=== PATIENT | female | born 1990 | race Caucasian/White ===

== ENCOUNTER → 2021-07-18 20:18 | Observation (INO) ==
[2021-07-18 19:40] LABS: Basophils % 0.2 %; Eosinophils # 0.2 K/mcL (0.0-0.6); Eosinophils % 1.8 %; Hematocrit 33.5 % (35.3-44.9); Hemoglobin 11.2 g/dL (11.5-15.4); Immature Granulocytes % 0.8 % (0-4); Lymphocytes # 2.1 K/mcL (0.6-4.6); Lymphocytes % 22.6 %; Mean Corpuscular HGB Conc 33.4 g/dL (31.6-35.5); Mean Corpuscular Hemoglobin 28.4 pg (28.0-33.3); Mean Platelet Volume 10.8 fL (9.4-12.4); Monocytes # 0.8 K/mcL (0.0-1.3); Neutrophils # 6.1 K/mcL (1.6-8.9); Platelet Count 225 K/mcL (140-400); Red Blood Count 3.94 M/mcL (3.82-4.97); Red Cell Distribution Width 13.4 % (11.5-14.5); Segmented Neutrophils % 65.6 %; White Blood Count 9.2 K/mcL (4.3-11.1)
[2021-07-18 19:50] LABS: Protein/Creatinine Ratio,Urine 0.12 mg/mg (0.00-0.20)
[2021-07-18 19:54] LABS: Alanine Aminotransferase 13 Units/L (7-52); Aspartate Amino Transferase 21 Units/L (13-39); BUN/Creatinine Ratio 13 (6-26); Blood Urea Nitrogen 13 mg/dL (6-20); Lactate Dehydrogenase 182 Units/L (140-271); Uric Acid 4.6 mg/dL (2.3-7.6); eGFR For African Americans > 60 (> 60); eGFR For Non-African Americans > 60 (> 60)
== END | disposition home or self-care (01) ==
LOC: 1NENULAB
PROVIDERS: ADMIT Student in an Organized Health Care Education/Training Program; ATTEND Student in an Organized Health Care Education/Training Program

== ENCOUNTER 2021-07-26 01:43 | Inpatient (IN) ==
[2021-07-26 00:43] LABS: Basophils % 0.4 %; Eosinophils # 0.2 K/mcL (0.0-0.6); Eosinophils % 1.9 %; Hemoglobin 11.3 g/dL (11.5-15.4); Immature Granulocytes % 0.8 % (0-4); Lymphocytes # 2.2 K/mcL (0.6-4.6); Lymphocytes % 23.4 %; Mean Corpuscular HGB Conc 33.2 g/dL (31.6-35.5); Mean Corpuscular Hemoglobin 28.4 pg (28.0-33.3); Mean Corpuscular Volume 85.4 fL (83.0-100.0); Mean Platelet Volume 10.1 fL (9.4-12.4); Monocytes # 0.8 K/mcL (0.0-1.3); Monocytes % 8.7 %; Platelet Count 221 K/mcL (140-400); Red Blood Count 3.98 M/mcL (3.82-4.97); Red Cell Distribution Width 13.5 % (11.5-14.5); Segmented Neutrophils % 64.8 %; White Blood Count 9.3 K/mcL (4.3-11.1)
[2021-07-26 00:49] LABS: Creatinine,Urine 42 mg/dL; Protein/Creatinine Ratio,Urine 0.21 mg/mg (0.00-0.20)
[2021-07-26 00:55] LABS: Alanine Aminotransferase 16 Units/L (7-52); Aspartate Amino Transferase 24 Units/L (13-39); BUN/Creatinine Ratio 16 (6-26); Blood Urea Nitrogen 12 mg/dL (6-20); Lactate Dehydrogenase 148 Units/L (140-271); Uric Acid 4.3 mg/dL (2.3-7.6); eGFR For African Americans > 60 (> 60); eGFR For Non-African Americans > 60 (> 60)
[2021-07-26] MEDS ORDERED: Famotidine 20 MG/2 ML VIAL IVP PRN (02:07)
[2021-07-26] MEDS ORDERED: Ondansetron 4 MG/2 ML VIAL IVP PRN (02:07)
[2021-07-26] MEDS ORDERED: Azithromycin 500 MG in 0.9 % Sodium Chloride 250 ML IVPB PRN (02:07)
[2021-07-26] MEDS ORDERED: miSOPROStoL 25 MCG TABLET PO PRN (02:07)
[2021-07-26] MEDS ORDERED: Lidocaine 1% 20 ML MDV INFILT PRN (02:07)
[2021-07-26] MEDS ORDERED: *HR* Nalbuphine 10 MG/ML AMPUL IV PRN (02:07)
[2021-07-26] MEDS ORDERED: Naloxone 0.4 MG/ML INJ IVP PRN (02:07)
[2021-07-26] MEDS ORDERED: Ringers Solution, Lactated 1,000 ML IVC SCH (02:15)
[2021-07-26 02:34] LABS: Amphetamine Screen,Urine Negative ng/mL (Cutoff=1000); Barbiturate Screen,Urine Negative ng/mL (Cutoff=200); Benzodiazepines Screen,Urine Negative ng/mL (Cutoff=200); Cannabinoid Screen,Urine Negative ng/mL (Cutoff = 50); Cocaine Screen,Urine Negative ng/mL (Cutoff= 300); Opiate Screen,Urine Negative ng/mL (Cutoff=300); Phencyclidine Screen,Urine Negative ng/mL (Cutoff=25)
[2021-07-26 03:05] LABS: Influenza A PCR Negative (Negative); Influenza B PCR Negative (Negative); Resp. Syncytial Virus PCR Negative (Negative)
[2021-07-26 03:11] LABS: SARS-CoV-2 by PCR (In House) Negative (Negative)
[2021-07-26] MEDS ORDERED: EPHEDrine 50 MG/ML VIAL IVP PRN (05:49)
[2021-07-26] MEDS ORDERED: Epidural Premix (fent/bupiv) 110 ML EP SCH (06:00)
[2021-07-26] MEDS ORDERED: Oxytocin 20 units/ LR 1000 mL 20 UNIT/1,000 ML BAG IVC SCH (07:30)
[2021-07-26] MEDS ORDERED: *HR* FentaNYL (PF) 100 MCG/2 ML VIAL ONE ×3 (21:30→23:03)
[2021-07-26] MEDS ORDERED: Bupivacaine-MPF 0.25% 10 ML VIAL ONE ×2 (22:24→22:25)
[2021-07-27] MEDS ORDERED: Lanolin 7 G OINT...G. TP PRN (05:17)
[2021-07-27] MEDS ORDERED: Measles/Mumps/Rubella Vacc 0.5 ML VIAL SQ PRN (05:17)
[2021-07-27] MEDS ORDERED: Benzocaine/Menthol 56 GM AEROSOL SPRAY TP PRN (05:17)
[2021-07-27] MEDS ORDERED: Rho Immune Globulin 1,500 UNIT SYRINGE IM PRN (05:17)
[2021-07-27] MEDS ORDERED: Oxytocin 20 units/ LR 1000 mL 20 UNIT/1,000 ML BAG IVC SCH (05:17)
[2021-07-27] MEDS ORDERED: Ondansetron ODT 4 MG TAB.RAPDIS SL PRN (06:00)
[2021-07-27] MEDS: Acetaminophen 325 MG TABLET PO SCH ×2 (09:21→20:47)
[2021-07-27] MEDS: Ibuprofen 600 MG TABLET PO SCH ×2 (09:23→20:48)
[2021-07-27] MEDS: Prenatal Vit/FA 1 EACH TABLET PO SCH (09:23)
[2021-07-28] MEDS: Acetaminophen 325 MG TABLET PO SCH ×2 (04:35→10:09)
[2021-07-28] MEDS: Ibuprofen 600 MG TABLET PO SCH ×2 (04:35→10:09)
[2021-07-28 07:01] VITALS: BP 129/76; PULSE 83; TEMP 97.8; O2SAT 97
[2021-07-28] MEDS: Prenatal Vit/FA 1 EACH TABLET PO SCH (10:09)
== END 2021-07-28 10:17 | disposition home or self-care (01) | DRG 807 ==
LOC: 1NENULAB → 1NENUOBS 07-27 05:15
PROVIDERS: ADMIT Advanced Practice Midwife; ATTEND Advanced Practice Midwife